=== PATIENT | male | born 1960 | race Caucasian/White ===

== ENCOUNTER 2017-03-05 11:38 | Emergency (ER) | payer OTHER ==
[~2017-03-05] VITALS: Wt 91.0 kg
[2017-03-05] MEDS ORDERED: KETOROLAC 30 MG INJ IM STA (13:26)
--- NOTE | 2017-03-05 13:32 | ERD ---
ER Documentation Chief Complaint Date/Time DATE: 03/05/17 TIME: 13:30 Chief Complaint CHRONIC BACK PAIN HPI Patient is a 56-year-old male who presents to the ED with low back pain. She states that he has had a previous diagnosis of herniated disks for the last 20 years. However he states that he occasionally gets muscle spasms in his back. However he states that in the last 2 days he has had increase in pain to his low back. He states that he was using the bathroom and was straining and felt pain in his low back. He states that the spasms come and go. He also states that today he developed weakness and fell to the ground from the pain. He states that he is unable to walk and had to crawl to stand up. He states that he is able to walk but with difficulty and very slow. Denies bowel or bladder incontinence. Denies chest pain, cough, shortness of breath or difficulty breathing. Denies numbness or tingling. Denies radiation of pain. Denies headache or dizziness, neck pain or stiffness. He states that he usually takes Flexeril for his symptoms however yesterday he took a Tiline and Vicodin from his coworker. He states that it helped minimally with his pain. ROS All systems reviewed and are negative except as per history of present illness. Medications Home Meds Active Scripts Naproxen* (Naprosyn*) 500 Mg Tablet, 500 MG PO BID Y for PAIN AND/OR INFLAMMATION, #30 TAB Prov:SOWMYA DELEON PA-C 03/05/17 Cyclobenzaprine Hcl* (Cyclobenzaprine Hcl*) 10 Mg Tablet, 10 MG PO TID, #15 TAB Prov:SOWMYA DELEON PA-C 03/05/17 Physical Exam Vitals Vital Signs Date Time Temp Pulse Resp B/P Pulse Ox O2 Delivery O2 Flow Rate FiO2 03/05/17 11:46 98.0 81 18 121/80 99 Physical Exam GENERAL: Well-developed, well-nourished male. Appears in no acute distress. HEAD: Normocephalic, atraumatic. EYES: Pupils are equally reactive bilaterally. EOMs grossly intact. No conjunctival erythema. ENT: Moist mucous membranes. No uvula deviation. No kissing tonsils. No exudates. NECK: Supple. No lymphadenopathy or thyromegaly. No meningismus. negative kernig. negative brudinski. LUNG: Clear to auscultation bilaterally. No rhonchi, wheezing, rales or coarse breath sounds. HEART: Regular rate and rhythm. No murmurs, rubs or gallops. ABDOMEN: No scars, ecchymosis or rashes noted. Soft, nontender, and nondistended. Positive bowel sounds in all four quadrants. No rebound tenderness , no guarding. (-) McBurneys point tenderness. No CVA tenderness. BACK: No midline tenderness. No spinal or paraspinal tenderness. No step-offs or deformities. No open wounds or laceration. No erythema or swelling. Extremities: Equal pulses bilaterally. No peripheral clubbing, cyanosis or edema. No unilateral leg swelling. NEUROLOGIC: Alert and oriented. Moving all four extremities. 5/5 strength in all extremities. Normal speech. unSteady gait. SKIN: Normal color. Warm and dry. No rashes or lesions. Capillary refill < 2 seconds Results 24 hrs Current Medications Medications (Trade) Dose Ordered Sig/Heide Route PRN Reason Start Time Stop Time Status Last Admin Dose Admin Ketorolac Tromethamine (Toradol) 30 mg ONCE STAT IM 03/05/17 13:26 03/05/17 13:28 DC 03/05/17 13:37 Procedures/MDM ER COURSE: I kept the patient and/or family informed of laboratory and diagnostic imaging results throughout the emergency room course. IMAGING STUDIES [place] [id number] Radiology Main Line: [phone] DIAGNOSTIC IMAGING REPORT Patient: SUHAIL NICHOLS : 1960 Age: 56 Sex: M MR #: [id number] DOS: 03/05/17 1326 Ordering MD: SOWMYA DELOEN PA-C Location: [facility] Room/Bed: PROCEDURE: CT Lumbar Spine without contrast. CLINICAL INDICATION: Back pain. TECHNIQUE: Noncontrast CT of the lumbar spine was performed with multiplanar reformatted images generated from the axial acquired data. The administered radiation dose was CTDI vol = 29.12 mGy, DLP = 877.8 mGy-cm. One or more of the following dose reduction techniques were used: Automated exposure control, Adjustment of the mA and/or kV according to patient size, or Use of iterative reconstruction technique. COMPARISON: There are no similar studies submitted for comparison. FINDINGS: There is normal lumbar lordosis. The vertebral body heights are maintained. There is no destructive osseous lesion. There is no acute fracture. The anterior posterior diameter of the spinal canal is 10 mm compatible with congenital spinal canal stenosis. T12-L1 : There is a 1 mm broad-based disk bulge without spinal canal or bilateral foraminal stenosis. L1-L2 : There is a 1 mm broad-based disk bulge without spinal canal or bilateral foraminal stenosis. L2-L3 : There is a 2 mm broad-based disk bulge and mild bilateral facet arthropathy with mild spinal canal stenosis. There is mild to moderate bilateral foraminal stenosis. L3-L4 : There is a 2 mm circumferential disk bulge with mild bilateral facet arthropathy and ligamentum flavum infolding causing moderate spinal canal stenosis. There is moderate left with mild to moderate right foraminal stenosis. L4-L5 : There is a 2 mm circumferential disk bulge with moderate bilateral facet arthropathy and ligamentum flavum infolding causing moderate to severe spinal canal stenosis. There is moderate to severe left with moderate right foraminal stenosis with impinging the exiting left L4 nerve root. L5-S1 : There is mild to moderate disk space narrowing. There is trace retrolisthesis with a 3 mm circumferential disk bulge mildly effacing the bilateral lateral recesses with mild bilateral facet arthropathy without spinal canal stenosis. There is severe right with moderate left foraminal stenosis impinging the exiting right L5 nerve root. The sacroiliac joints are intact. IMPRESSION: 1. Congenital spinal canal stenosis. 2. No acute fracture. 3. L4-L5 circumferential disk bulge with moderate to severe spinal canal stenosis. There is moderate to severe left and moderate right foraminal stenosis with impinging the exiting left L4 nerve root. 4. L5-S1 trace retrolisthesis with a 3 mm circumferential disk bulge mildly effacing the bilateral lateral recesses with severe right and moderate left foraminal stenosis impinging the exiting right L5 nerve root. Further findings as detailed above. RPTAT: PP .Donavan Rinaldi MD, Date Time Electronically viewed and signed by .Donavan Rinaldi MD, MD on 03/05/2017 14:45 .F/ CC: SOWMYA DELEON PA-C MEDICATIONS Toradol 30 mg IM. Tolerated well with no adverse reaction. Stated improvement in symptoms. MEDICAL DECISION MAKING: This is a 56-year-old male who presents with chronic low back pain. Vital signs were reviewed. Patient is afebrile. Patient is not hypoxic. Patient is not toxic or ill-appearing. Patient has intervertebral disc disease with herniated disks. There are no fractures. Risks versus benefits of the CT scan were discussed with patient. Due to patient's weakness and fall, a CT scan was ordered. Low suspicion for cauda equine syndrome, spinal epidural hematoma, spinal epidural abscess, osteomyelitis, fracture, aortic dissection, AAA, pyelonephritis, nephrolithiasis, septic stone, obstructed stone. DISCHARGE: At this time, patient is stable for discharge and outpatient management with no new complaints during the ER course. Patient was sent home with a CD of his report, copy of imaging studies, Naprosyn and Flexeril and advised to follow-up with orthopedics for further management and possible surgery as he has had this pain for many years.. Patient will be discharged home with instructions to recheck for new or worsening symptoms such as fever, nausea, weakness, LOC and to follow up with primary care in the next 1-2 days. Patient was advised to return to the ER for any new or worsening symptoms. Plan was discussed and patient and/or family understands and agrees. Home instructions were given. Departure Diagnosis: Primary Impression: Back pain Back pain location: low back pain Chronicity: chronic Back pain laterality : bilateral Sciatica presence: without sciatica Qualified Code: M54.5 - Chronic bilateral low back pain without sciatica Condition: Stable SOWMYA DELEON PA-C Mar 05, 2017 13:32
--- NOTE | 2017-03-05 14:45 | RADRPT ---
PROCEDURE: CT Lumbar Spine without contrast. CLINICAL INDICATION: Back pain. TECHNIQUE: Noncontrast CT of the lumbar spine was performed with multiplanar reformatted images gen erated from the axial acquired data. The administered radiation dose was CTDI vol = 29.12 mGy, DLP = 877.8 mGy-cm. One or more of the following dose reduction techniques were used: Automated exposure control, Adjustment of the mA and/or kV according to patient size, or Use of iterative reconstructi on technique. COMPARISON: There are no similar studies submitted for comparison. FINDINGS: There is normal lumbar lordosis. The vertebral body heights are maintained. There is no destructive osseous lesion. There is no acute fracture. The anterior posterior diameter of the spinal canal is 10 mm compatible with congenital spinal canal stenosis. T12-L1 : There is a 1 mm broad-based disk bulge without spinal canal or bilateral foraminal stenosis . L1-L2 : There is a 1 mm broad-based disk bulge without spinal canal or bilateral foraminal stenosis. L2-L3 : There is a 2 mm broad-based disk bulge and mild bilateral facet arthropathy with mild spinal canal stenosis. There is mild to moderate bilateral foraminal stenosis. L3-L4 : There is a 2 mm circumferential disk bulge with mild bilateral facet arthropathy and ligamen erendira flavum infolding causing moderate spinal canal stenosis. There is moderate left with mild to mo derate right foraminal stenosis. L4-L5 : There is a 2 mm circumferential disk bulge with moderate bilateral facet arthropathy and lig amentum flavum infolding causing moderate to severe spinal canal stenosis. There is moderate to sev ere left with moderate right foraminal stenosis with impinging the exiting left L4 nerve root. L5-S1 : There is mild to moderate disk space narrowing. There is trace retrolisthesis with a 3 mm c ircumferential disk bulge mildly effacing the bilateral lateral recesses with mild bilateral facet a rthropathy without spinal canal stenosis. There is severe right with moderate left foraminal stenos is impinging the exiting right L5 nerve root. The sacroiliac joints are intact. IMPRESSION: 1. Congenital spinal canal stenosis. 2. No acute fracture. 3. L4-L5 circumferential disk bulge with moderate to severe spinal canal stenosis. There is modera te to severe left and moderate right foraminal stenosis with impinging the exiting left L4 nerve nely t. 4. L5-S1 trace retrolisthesis with a 3 mm circumferential disk bulge mildly effacing the bilateral lateral recesses with severe right and moderate left foraminal stenosis impinging the exiting right L5 nerve root. Further findings as detailed above. RPTAT: PP .Donavan Rinaldi MD, Date Time Electronically viewed and signed by .Donavan Rinaldi MD, on 03/05/2017 14:45 .F/
[2017-03-05] MEDS ORDERED: NAPR-260 PO (14:56)
[2017-03-05] MEDS ORDERED: CYCL-319 PO (14:56)
== END 2017-03-05 15:51 | disposition home or self-care (01) ==
LOC: FTE 11:38
DX: S39.92XA Unspecified injury of lower back, initial encounter (principal); W18.39XA Other fall on same level, initial encounter; Y92.9 Unspecified place or not applicable
CPT/HCPCS: 72131; 96372; 99285; J1885